=== PATIENT | female | born 1990 | race Two or more races ===

== ENCOUNTER 2021-03-14 12:42 | Outpatient (CLI) | payer OTHER | END 2021-03-14 12:50 | disposition home or self-care (01) | LOC: RAD 12:42 | PROVIDERS: ATTEND Colon & Rectal Surgery | DX: K59.09 Other constipation (principal) ==

== ENCOUNTER 2021-10-05 06:00 | Day surgery (SDC) | payer OTHER | END 2021-10-05 10:20 | disposition home or self-care (01) | LOC: AMB-ENDOS 06:00 | PROVIDERS: ATTEND Colon & Rectal Surgery | DX: K62.89 Other specified diseases of anus and rectum (principal); K59.09 Other constipation; Z20.822 Contact with and (suspected) exposure to COVID-19 ==